=== PATIENT | female | born 1960 | race Caucasian/White ===

== ENCOUNTER 2017-12-24 14:26 | Emergency (ER) | payer BC ==
[2017-12-24] MEDS ORDERED: Aspirin 81 MG Tab.Chew PO ONE (15:14)
--- NOTE | 2017-12-24 15:15 | EDM.PDOC ---
ED HPI GENERAL MEDICAL PROBLEM - General Chief Complaint: Cardiovascular Problem Stated Complaint: CHEST PAIN EPISODE Time Seen by Provider: 12/24/17 15:15 Source of Information: Reports: Patient History Limitations: Reports: No Limitations - History of Present Illness INITIAL COMMENTS - FREE TEXT/NARRATIVE: pt arrived with a history of a squeezing chest pain. This occured while at work. She did get dizzy but she did not get sweaty or vomit. She was mi;ldly sob. Onset: Today Duration: Other ( It lasted a few minutes in terms of the squeezing and the dizziness has persisted. ) Associated Symptoms: Reports: Chest Pain, Weakness, Other ( lite headed feelng. 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: Neurological History: Reports: Concussion Hematologic History: Reports: Anemia - Infectious Disease History Infectious Disease History: Reports: Chicken Pox - Past Surgical History HEENT Surgical History: Reports: Oral Surgery Female Surgical History: Reports: Hysterectomy Social & Family History - Tobacco Use Smoking Status *Q: Never Smoker - Caffeine Use Caffeine Use: Reports: Coffee, Soda - Recreational Drug Use Recreational Drug Use: No ED ROS GENERAL - Review of Systems Review Of Systems: See Below Constitutional: Reports: No Symptoms HEENT: Reports: No Symptoms Respiratory: Reports: No Symptoms Cardiovascular: Reports: Chest Pain, Other (pt has a history of episodes of squeezing chest pain . She had an episode today. She states the pain was squeezing accross the chest and went clear to the rt side of the chest. She felt dizzy and stil was feelin\g dizzy on arrival. ) GI/Abdominal: Reports: No Symptoms : Reports: No Symptoms Musculoskeletal: Reports: No Symptoms Skin: Reports: No Symptoms ED EXAM, GENERAL - Physical Exam Exam: See Below Free Text/Narrative:: pt arrived with a episode of squeezing chest pain. She felt dizzy aheAd of the episode. She was still dizzy when she got here. She was not sweaty. She has had a number of episodes similar to this but this was the worst of all today. Exam Limited By: No Limitations General Appearance: Alert, Mild Distress, Other (pt was still slightly dizzy. ) Ears: Normal TMs Nose: Normal Inspection Throat/Mouth: Normal Inspection Head: Atraumatic Neck: Other (no carotid bruits, ) Respiratory/Chest: No Respiratory Distress Cardiovascular: Regular Rate, Rhythm, Other ( Pt was monitored while she was here and she did not have any rhythm changes. ) GI/Abdominal: Soft, Non-Tender (Female) Exam: Deferred Rectal (Female) Exam: Deferred Back Exam: Normal Inspection Extremities: Normal Inspection Neurological: Alert, Oriented, Normal Cognition Psychiatric: Normal Affect Course - Vital Signs Last Recorded V/S: Last Vital Signs Temp 35.9 C 12/24/17 15:04 Pulse 82 12/24/17 15:58 Resp 16 12/24/17 15:58 BP 147/81 H 12/24/17 15:58 Pulse Ox 97 12/24/17 15:58 - Orders/Labs/Meds Orders: Active Orders 24 hr Category Date Time Status EKG Documentation Completion [RC] ASDIRECTED Care 12/24/17 15:14 Active Chest 1V Frontal [CR] Stat Exams 12/24/17 15:42 Taken UA W/MICROSCOPIC [URIN] Urgent Lab 12/24/17 15:58 Ordered EKG 12 Lead [EK] Routine Ther 12/24/17 15:14 Ordered Labs: Laboratory Tests 12/24/17 12/24/17 12/24/17 Range/Units 15:25 15:25 15:25 WBC 4.8 (4.5-11.0) K/uL RBC 4.29 (3.30-5.50) M/uL Hgb 12.6 (12.0-15.0) g/dL Hct 37.6 (36.0-48.0) % MCV 88 (80-98) fL MCH 29 (27-31) pg MCHC 34 (32-36) % Plt Count 234 (150-400) K/uL Neut % (Auto) 58 (36-66) % Lymph % (Auto) 32 (24-44) % Wilcox % (Auto) 8 H (2-6) % Eos % (Auto) 2 (2-4) % Baso % (Auto) 1 (0-1) % Sodium 141 (140-148) mmol/L Potassium 3.7 (3.6-5.2) mmol/L Chloride 104 (100-108) mmol/L Carbon Dioxide 27 (21-32) mmol/L Anion Gap 9.7 (5.0-14.0) mmol/L BUN 11 (7-18) mg/dL Creatinine 0.8 (0.6-1.0) mg/dL Est Cr Clr Drug Dosing 64.95 mL/min Estimated GFR (MDRD) > 60 (>60) Glucose 99 (74-106) mg/dL Calcium 8.7 (8.5-10.1) mg/dL Total Bilirubin 0.4 (0.2-1.0) mg/dL AST 18 (15-37) U/L ALT 24 (12-78) U/L Alkaline Phosphatase 79 (46-116) U/L Creatine Kinase 127 (26-192) U/L Troponin I < 0.017 (0.000-0.056) ng/mL Total Protein 6.9 (6.4-8.2) g/dL Albumin 3.6 (3.4-5.0) g/dL Globulin 3.3 (2.3-3.5) g/dL Albumin/Globulin Ratio 1.1 L (1.2-2.2) Urine Color Urine Appearance Urine pH (4.5-8.0) Ur Specific Godfrey (1.008-1.030) Urine Protein (NEGATIVE) mg/dL Urine Glucose (UA) (NEGATIVE) mg/dL Urine Ketones (NEGATIVE) mg/dL Urine Occult Blood (NEGATIVE) Urine Nitrite (NEGATIVE) Urine Bilirubin (NEGATIVE) Urine Urobilinogen (NORMAL) mg/dL Ur Leukocyte Esterase (NEGATIVE) Urine RBC (0-5) Urine WBC (0-5) Ur Epithelial Cells Amorphous Sediment Urine Bacteria Urine Mucus 12/24/17 Range/Units 15:58 WBC (4.5-11.0) K/uL RBC (3.30-5.50) M/uL Hgb (12.0-15.0) g/dL Hct (36.0-48.0) % MCV (80-98) fL MCH (27-31) pg MCHC (32-36) % Plt Count (150-400) K/uL Neut % (Auto) (36-66) % Lymph % (Auto) (24-44) % Wilcox % (Auto) (2-6) % Eos % (Auto) (2-4) % Baso % (Auto) (0-1) % Sodium (140-148) mmol/L Potassium (3.6-5.2) mmol/L Chloride (100-108) mmol/L Carbon Dioxide (21-32) mmol/L Anion Gap (5.0-14.0) mmol/L BUN (7-18) mg/dL Creatinine (0.6-1.0) mg/dL Est Cr Clr Drug Dosing mL/min Estimated GFR (MDRD) (>60) Glucose (74-106) mg/dL Calcium (8.5-10.1) mg/dL Total Bilirubin (0.2-1.0) mg/dL AST (15-37) U/L ALT (12-78) U/L Alkaline Phosphatase (46-116) U/L Creatine Kinase (26-192) U/L Troponin I (0.000-0.056) ng/mL Total Protein (6.4-8.2) g/dL Albumin (3.4-5.0) g/dL Globulin (2.3-3.5) g/dL Albumin/Globulin Ratio (1.2-2.2) Urine Color Yellow Urine Appearance Clear Urine pH 6.0 (4.5-8.0) Ur Specific Godfrey 1.005 L (1.008-1.030) Urine Protein Negative (NEGATIVE) mg/dL Urine Glucose (UA) Normal (NEGATIVE) mg/dL Urine Ketones Negative (NEGATIVE) mg/dL Urine Occult Blood Negative (NEGATIVE) Urine Nitrite Negative (NEGATIVE) Urine Bilirubin Negative (NEGATIVE) Urine Urobilinogen Normal (NORMAL) mg/dL Ur Leukocyte Esterase Negative (NEGATIVE) Urine RBC Not seen (0-5) Urine WBC Not seen (0-5) Ur Epithelial Cells Not seen Amorphous Sediment Rare Urine Bacteria Not seen Urine Mucus Not seen Meds: Medications Discontinued Medications Generic Name Dose Route Start Last Admin Trade Name Freq PRN Reason Stop Dose Admin Aspirin 324 mg 12/24/17 15:14 12/24/17 15:57 Aspirin PO 12/24/17 15:15 324 mg ONETIME ONE Administration - Re-Assessments/Exams Free Text/Narrative Re-Assessment/Exam: 12/24/17 16:57 pt\ had a normal ekg, normal trop and the rest of her labs were normal. Her rhythm stayed stable. Departure - Departure Time of Disposition: 16:45 Disposition: Home, Self-Care 01 Condition: Fair Clinical Impression: Atypical chest pain, Dizziness Referrals: Gabe Miller, [employer] [Primary Care Provider] - Forms: ED Department Discharge Care Plan Goals: rtc if further problems, event recorder, exercise cardiolyte, echo follow up the end of the week with Gabe Murphy - My Orders Last 24 Hours: My Active Orders 12/24/17 15:14 EKG Documentation Completion [RC] ASDIRECTED EKG 12 Lead [EK] Routine 12/24/17 15:42 Chest 1V Frontal [CR] Stat 12/24/17 15:58 UA W/MICROSCOPIC [URIN] Urgent - Assessment/Plan Last 24 Hours: My Active Orders 12/24/17 15:14 EKG Documentation Completion [RC] ASDIRECTED EKG 12 Lead [EK] Routine 12/24/17 15:42 Chest 1V Frontal [CR] Stat 12/24/17 15:58 UA W/MICROSCOPIC [URIN] Urgent
[2017-12-24 15:59] VITALS: BP 147/81
--- NOTE | 2017-12-25 08:26 | CR ---
CHEST: Portable CLINICAL HISTORY:Chest pain COMPARISON:None FINDINGS: Lungs are clear. Heart size and pulmonary vascularity are normal. There are no effusions. IMPRESSION: No acute cardiopulmonary process
== END 2017-12-24 17:01 | disposition home or self-care (01) ==
LOC: JP.ED 14:26
DX: R07.89 Other chest pain (principal); R42 Dizziness and giddiness; Z88.8 Allergy status to other drugs, medicaments and biological substances
CPT/HCPCS: 36415; 71045; 80053; 81001; 82550; 84484; 85025; 93005; 99285; A9270